=== PATIENT | female | born 2000 | race African-American/Black ===

== ENCOUNTER 2021-08-12 15:01 | Emergency (ER) | payer MEDICAID ==
[~2021-08-12] VITALS: Ht 160 cm; Wt 62.0 kg
[2021-08-12] MEDS ORDERED: METO-385 PO (15:26)
[2021-08-12] MEDS ORDERED: TOPUD PO (15:26)
[2021-08-12 21:44] LABS: BASOPHILS % 0.4 % (0.0-2.0); EOSINOPHILS % 2.7 % (0.0-5.0); HEMATOCRIT. 34.5 % (36.0-48.0); HEMOGLOBIN. 11.4 g/dL (12.0-16.0); LYMPHOCYTES % 29.9 % (20.0-50.0); MEAN CORPUSCULAR HEMOGLOBIN 28.3 pg (28.0-32.0); MEAN CORPUSCULAR VOLUME 85.2 fL (81.0-99.0); PLATELET 273 x1000/uL (130-400); RED BLOOD CELL COUNT 4.05 mill/uL (4.2-5.4); RED CELL DISTRIBUTION WIDTH 17.1 % (11.6-14.6)
[2021-08-12 21:50] LABS: CHLORIDE 105 mEq/L (98-107)
[2021-08-12 22:00] LABS: HCG SCREEN NEGATIVE
[2021-08-13 00:07] VITALS: BP 133/80
== END 2021-08-13 00:33 | disposition home or self-care (01) ==
LOC: ER 15:01
DX: Z00.00 Encounter for general adult medical examination without abnormal findings (principal); Z48.03 Encounter for change or removal of drains; Z98.890 Other specified postprocedural states
CPT/HCPCS: 36415; 80053; 84703; 85025; 99283

== ENCOUNTER 2021-08-23 00:46 | Emergency (ER) | payer MEDICAID ==
[~2021-08-23] VITALS: Ht 160 cm; Wt 59.0 kg
[~2021-08-23 00:46] MED LIST: METO-385 PO; TOPUD PO
[2021-08-23] MEDS ORDERED: ONDANSETRON HCL 4MG/2ML INJ IV STA (01:20)
[2021-08-23] MEDS ORDERED: MORPHINE SULFATE 4 MG/ML CPJ (NOT FOR IM USE) IV STA (01:20)
[2021-08-23] MEDS ORDERED: SODIUM CHLORIDE 0.9% 1,000 ML IV ONE (01:30)
[2021-08-23 02:05] LABS: BASOPHILS % 0.3 % (0.0-2.0); EOSINOPHILS % 0.3 % (0.0-5.0); HEMATOCRIT. 33.7 % (36.0-48.0); HEMOGLOBIN. 11.5 g/dL (12.0-16.0); LYMPHOCYTES % 11.3 % (20.0-50.0); MEAN CORPUSCULAR HEMOGLOBIN 28.6 pg (28.0-32.0); MEAN CORPUSCULAR VOLUME 83.7 fL (81.0-99.0); MEAN PLATELET VOLUME 7.2 fl (7.4-10.4); MONOCYTES % 3.1 % (2.0-8.0); PLATELET 364 x1000/uL (130-400); RED BLOOD CELL COUNT 4.02 mill/uL (4.2-5.4); RED CELL DISTRIBUTION WIDTH 16.8 % (11.6-14.6)
[2021-08-23 02:07] LABS: CHLORIDE 107 mEq/L (98-107)
[2021-08-23 02:11] LABS: ETHANOL BLOOD < 10 mg/dL
[2021-08-23 02:13] LABS: CLARITY URINE CLOUDY (CLEAR); COLOR URINE DARK YELLOW (YELLOW); KETONES URINE 3+ (NEGATIVE); LEUKOCYTE ESTERASE URINE TRACE (NEGATIVE); NITRITE URINE NEGATIVE (NEGATIVE); OCCULT BLOOD URINE NEGATIVE (NEGATIVE); PROTEIN URINE 1+ (NEGATIVE); SPECIFIC GRAVITY URINE 1.031 (1.005-1.030)
[2021-08-23 02:41] LABS: *AMPHETAMINES SCREEN URINE NEGATIVE (NEGATIVE); *BARBITURATES SCREEN URINE NEGATIVE (NEGATIVE); *BENZODIAZEPINES SCREEN URINE NEGATIVE (NEGATIVE); *COCAINE SCREEN URINE NEGATIVE (NEGATIVE); METHADONE URINE SCREEN NEGATIVE (NEGATIVE)
[2021-08-23 02:42] LABS: OPIATES URINE SCREEN NEGATIVE (NEGATIVE)
[2021-08-23 03:08] LABS: CANNABINOID URINE SCREEN PRESUMTIVE POSITIVE (NEGATIVE); PHENCYCLIDINE URINE SCREEN PRESUMTIVE POSITIVE (NEGATIVE)
[2021-08-23] MEDS ORDERED: IOHEXOL-300 100 ML BOTTLE ONE (04:30)
[2021-08-23 05:10] VITALS: BP 143/87
== END 2021-08-23 05:13 | disposition home or self-care (01) ==
LOC: ER 00:57
DX: R10.9 Unspecified abdominal pain (principal); F12.10 Cannabis abuse, uncomplicated; F11.10 Opioid abuse, uncomplicated; R00.0 Tachycardia, unspecified; Z98.890 Other specified postprocedural states
CPT/HCPCS: 36415; 74177; 80053; 80305; 80320; 81003; 81025; 83690; 85025; 96361; 96374; 96375; 99285; J2270; J2405; J7030; Q9967; G0480

== ENCOUNTER 2021-08-23 19:05 | Inpatient (IN) | payer MEDICAID ==
[~2021-08-23] VITALS: Ht 160 cm; Wt 64.4 kg
[2021-08-23] MEDS ORDERED: ONDANSETRON HCL 4MG/2ML INJ IV STA (19:41)
[2021-08-23] MEDS ORDERED: FAMOTIDINE 20MG/2ML VIAL IV STA (19:41)
[2021-08-23] MEDS ORDERED: MAGNESIUM/ALUMINUM HYDROXIDE/SIMETHICONE 30ML UDC PO STA (19:41)
[2021-08-23] MEDS ORDERED: SODIUM CHLORIDE 0.9% 1,000 ML IV ONE (19:45)
[2021-08-23 20:55] LABS: BASOPHILS % 0.3 % (0.0-2.0); EOSINOPHILS % 0.3 % (0.0-5.0); HEMOGLOBIN. 11.5 g/dL (12.0-16.0); MEAN CORPUSCULAR HEMOGLOBIN 28.2 pg (28.0-32.0); MEAN CORPUSCULAR VOLUME 83.6 fL (81.0-99.0); MEAN PLATELET VOLUME 6.9 fl (7.4-10.4); MONOCYTES % 6.9 % (2.0-8.0); NEUTROPHILS % 80.5 % (40.0-76.0); PLATELET 382 x1000/uL (130-400); RED BLOOD CELL COUNT 4.07 mill/uL (4.2-5.4); RED CELL DISTRIBUTION WIDTH 17.3 % (11.6-14.6)
[2021-08-23 20:57] LABS: CHLORIDE 106 mEq/L (98-107)
[2021-08-23] MEDS ORDERED: METRONIDAZOLE 500 MG PREMIX 100 ML IV ONE (21:00)
[2021-08-23] MEDS ORDERED: FENTANYL CITRATE/PF 50MCG/ML 2ML VIAL IV NR (21:00)
[2021-08-23] MEDS ORDERED: CEFTRIAXONE 1 G PREMIX 50 ML IV ONE (21:00)
[2021-08-23 21:04] LABS: HCG SCREEN NEGATIVE
[2021-08-23] MEDS: KCL 20MEQ/100ML PREMIX 100 ML IV SCH (22:42)
[2021-08-23] MEDS ORDERED: MORPHINE SULFATE 4 MG/ML CPJ (NOT FOR IM USE) IV ONE (23:00)
[2021-08-23] MEDS ORDERED: METOCLOPRAMIDE HCL 10MG/2ML VIAL IV ONE (23:00)
[2021-08-24] MEDS ORDERED: SODIUM CHLORIDE 0.9% 1,000 ML IV ONE ×2 (00:45→04:00)
[2021-08-24] MEDS: KCL 20MEQ/100ML PREMIX 100 ML IV SCH (02:32)
[2021-08-24] MEDS ORDERED: NALOXONE HCL 0.4MG/ML VIAL IV PRN (04:00)
[2021-08-24] MEDS: MORPHINE SULFATE 2 MG/ML CPJ (NOT FOR IM USE) IV PRN ×4 (05:40→22:02)
[2021-08-24 08:00] VITALS: BP 139/86
[2021-08-24] MEDS ORDERED: HYDROCODONE/ACETAMINOPHEN 5/325MG TABLET PO PRN (08:45)
[2021-08-24] MEDS: ONDANSETRON HCL 4MG/2ML INJ IV PRN ×2 (08:59→14:48)
[2021-08-24 12:00] VITALS: BP 145/94
[2021-08-24] MEDS: ONDANSETRON HCL 4MG/2ML INJ IV SCH ×2 (15:00→20:37)
[2021-08-24 16:00] VITALS: BP 134/89
[2021-08-24] MEDS: MORPHINE SULFATE 2 MG/ML CPJ (NOT FOR IM USE) IV NR ×2 (16:00→20:38)
[2021-08-24] MEDS: METOCLOPRAMIDE HCL 10MG/2ML VIAL IV SCH (17:10)
[2021-08-24 20:00] VITALS: BP 115/80
[2021-08-25] VITALS: BP 116/75
[2021-08-25] MEDS: METOCLOPRAMIDE HCL 10MG/2ML VIAL IV SCH ×3 (00:44→12:16)
[2021-08-25 01:20] LABS: *AMPHETAMINES SCREEN URINE NEGATIVE (NEGATIVE); *BARBITURATES SCREEN URINE NEGATIVE (NEGATIVE); *BENZODIAZEPINES SCREEN URINE NEGATIVE (NEGATIVE)
[2021-08-25 01:21] LABS: *COCAINE SCREEN URINE NEGATIVE (NEGATIVE); METHADONE URINE SCREEN NEGATIVE (NEGATIVE); PHENCYCLIDINE URINE SCREEN NEGATIVE (NEGATIVE)
[2021-08-25 01:23] LABS: CANNABINOID URINE SCREEN PRESUMTIVE POSITIVE (NEGATIVE); OPIATES URINE SCREEN PRESUMTIVE POSITIVE (NEGATIVE)
[2021-08-25] MEDS: ONDANSETRON HCL 4MG/2ML INJ IV SCH ×2 (03:08→09:05)
[2021-08-25] MEDS: MORPHINE SULFATE 2 MG/ML CPJ (NOT FOR IM USE) IV PRN (03:09)
[2021-08-25 04:00] VITALS: BP 108/70
[2021-08-25 06:11] LABS: CHLORIDE 108 mEq/L (98-107)
[2021-08-25 06:13] LABS: BASOPHILS % 0.4 % (0.0-2.0); EOSINOPHILS % 1.4 % (0.0-5.0); HEMATOCRIT. 33.5 % (36.0-48.0); HEMOGLOBIN. 11.3 g/dL (12.0-16.0); LYMPHOCYTES % 24.2 % (20.0-50.0); MEAN CORPUSCULAR HEMOGLOBIN 28.7 pg (28.0-32.0); MEAN CORPUSCULAR VOLUME 84.6 fL (81.0-99.0); MEAN PLATELET VOLUME 6.9 fl (7.4-10.4); PLATELET 323 x1000/uL (130-400); RED BLOOD CELL COUNT 3.96 mill/uL (4.2-5.4); RED CELL DISTRIBUTION WIDTH 17.3 % (11.6-14.6)
[2021-08-25 08:00] VITALS: BP 103/51
[2021-08-25] MEDS ORDERED: BISACODYL 10MG SUPP PR SCH (09:00)
[2021-08-25] MEDS: MORPHINE SULFATE 2 MG/ML CPJ (NOT FOR IM USE) IV NR (09:21)
[2021-08-25 12:00] VITALS: BP 116/73
[2021-08-25 15:01] VITALS: BP 101/50
== END 2021-08-25 16:08 | disposition home or self-care (01) ==
LOC: ER 19:05 → EDBEDREQSVC 08-24 00:21 → EDBEDREQDT 08-24 00:21 → EDBEDREQTM 08-24 00:21 → EDBEDREQ 08-24 00:21 → 6WST 08-24 00:58 → ENRESERV 08-24 05:11 → 6WST 08-24 08:40
PROVIDERS: ADMIT Internal Medicine; ATTEND Internal Medicine
DX: S36.113A Laceration of liver, unspecified degree, initial encounter (principal); L02.211 Cutaneous abscess of abdominal wall; E87.6 Hypokalemia; K59.00 Constipation, unspecified; K80.20 Calculus of gallbladder without cholecystitis without obstruction; R00.0 Tachycardia, unspecified; X58.XXXA Exposure to other specified factors, initial encounter; F12.90 Cannabis use, unspecified, uncomplicated; Y93.89 Activity, other specified; Y92.89 Other specified places as the place of occurrence of the external cause; Y99.8 Other external cause status
CPT/HCPCS: 36415; 76705; 80048; 80053; 80076; 80305; 84145; 84703; 85025; 99285; J0696; J2270; J2405; J2765; J3010; J3480; J3490; J7030

== ENCOUNTER 2024-10-13 12:52 | Emergency (ER) | payer MEDICAID, OTHER ==
[~2024-10-13] VITALS: Ht 162.6 cm; Wt 87.0 kg
[2024-10-13 12:55] VITALS: O2SAT 97
[2024-10-13 13:01] VITALS: BP 122/90; PULSE 81; RESP 17; TEMP 98.2; O2SAT 100
== END 2024-10-13 21:47 | disposition left against medical advice (07) ==
LOC: ER 12:59
DX: R11.10 Vomiting, unspecified (principal); Z53.21 Procedure and treatment not carried out due to patient leaving prior to being seen by health care provider